=== PATIENT | female | born 1950 | race Caucasian/White ===

== ENCOUNTER 2017-04-15 15:03 | Emergency (ER) | payer MEDICARE ==
[~2017-04-15] VITALS: Ht 160 cm; Wt 44.2 kg
[2017-04-15 15:14] VITALS: BP 108/65
[2017-04-15] MEDS ORDERED: IPRATROPIUM BROM 0.5 MG/2.5ML INH SOL NEB ONE (16:00)
[2017-04-15] MEDS ORDERED: ALBUTEROL SULF 2.5 MG/0.5ML(0.5%) NEB SOLN NEB ONE (16:00)
[2017-04-15] MEDS ORDERED: cefTRIAXone SOD 1,000 MG VL IM ONE (16:00)
[2017-04-15] MEDS ORDERED: methylPREDNISolone SOD SUCC 125 MG/2 ML VL IM ONE (16:00)
== END 2017-04-15 16:24 | disposition home or self-care (01) ==
LOC: ER 15:07
DX: J45.909 Unspecified asthma, uncomplicated (principal)
CPT/HCPCS: 71020; 94640; 99284; J0696; J2930

== ENCOUNTER 2017-05-06 16:13 | Emergency (ER) | payer MEDICARE ==
[~2017-05-06] VITALS: Ht 160 cm; Wt 45.4 kg
[2017-05-06 17:12] VITALS: BP 125/69
== END 2017-05-06 17:40 | disposition home or self-care (01) ==
LOC: ER 16:13
DX: J20.9 Acute bronchitis, unspecified (principal); J02.9 Acute pharyngitis, unspecified; J45.909 Unspecified asthma, uncomplicated; H66.91 Otitis media, unspecified, right ear

== ENCOUNTER 2017-05-08 19:46 | Emergency (ER) | payer MEDICARE ==
[~2017-05-08] VITALS: Ht 160 cm; Wt 54.4 kg
[2017-05-08 20:04] VITALS: BP 99/66
== END 2017-05-09 01:40 | disposition left against medical advice (07) ==
LOC: ER 19:56
DX: R05 Cough (principal); Z53.21 Procedure and treatment not carried out due to patient leaving prior to being seen by health care provider
CPT/HCPCS: 71020

== ENCOUNTER 2017-05-30 18:53 | Emergency (ER) | payer MEDICARE ==
[~2017-05-30] VITALS: Ht 160 cm; Wt 44.7 kg
[2017-05-30 19:14] VITALS: BP 123/69
== END 2017-05-30 21:34 | disposition home or self-care (01) ==
LOC: ER 18:53
DX: L55.9 Sunburn, unspecified (principal); J45.909 Unspecified asthma, uncomplicated; H92.01 Otalgia, right ear; R05 Cough

== ENCOUNTER 2017-05-31 04:45 | Emergency (ER) | payer MEDICARE ==
[~2017-05-31] VITALS: Ht 160 cm; Wt 44.9 kg
[2017-05-31 04:49] VITALS: BP 127/85
== END 2017-05-31 06:57 | disposition left against medical advice (07) ==
LOC: ER 04:45
DX: H92.02 Otalgia, left ear (principal); Z76.0 Encounter for issue of repeat prescription; Z53.21 Procedure and treatment not carried out due to patient leaving prior to being seen by health care provider